=== PATIENT | male | born 1990 | race Hispanic/Latino ===

== ENCOUNTER 2024-11-27 12:23 | Emergency (ER) | payer SELFPAY ==
--- NOTE | ~2024-11-27 | CT_ITS ---
CT scan of the Neck Technique: 2.5 mm axial scans were obtained through the neck after intravenous administration of 75 c c Omnipaque 350. Coronal and sagittal reconstructions of the neck were obtained. Dose reduction techn ique was used on this scan by utilizing automated exposure control and iterative reconstruction techn ique. The dose-length product (DLP) was 454.12 mGy-cm. Clinical History: Spider bite, left-sided neck swelling Findings: There is no evidence of any significant cervical lymphadenopathy. Several small, nonenlarged jugulo- digastric and posterior cervical lymph nodes are noted bilaterally. Parapharyngeal spaces appear norm al bilaterally. The parotid and submandibular glands appear normal. There is diffuse subcutaneous soft tissue edema in the neck, probably mildly worse in the left side o f the neck as compared to right. There is enlargement and edematous change of the left sternocleidoma stoid muscle as compared to the right side, especially at its midportion (for example axial image 40) . No focal fluid collection evident. The pharyngeal mucosal spaces appear normal. No soft tissue masses are seen in the neck. The thyroid gland appears normal. Images of the lung apices reveal no abnormalities. Impression: Extensively enlarged and edematous left sternocleidomastoid muscle as compared to the right side, adele picious for myositis. Mild diffuse subcutaneous soft tissue edema, which could reflect cellulitis. No distinct abscess or mass lesion evident. Reviewed, dictated and finalized at [facility]. Impression: Extensively enlarged and edematous left sternocleidomastoid muscle as compared to the right side, suspicious for myositis. Mild diffuse subcutaneous soft tissue edema, which could reflect cellulitis. No distinct abscess or mass lesion evident.
[2024-11-27 12:25] VITALS: BP 174/105; PULSE 134; RESP 18; TEMP 36.3; O2SAT 99
--- NOTE | 2024-11-27 12:35 | PC.NURSE ---
labs and CT soft tissue of neck with contrast ordered per VO Dr. Jasmine
--- NOTE | 2024-11-27 12:48 | ED_ITS ---
HPI - Skin/Abscess/Foreign Bdy General Chief complaint: Skin/Abscess/Foreign Body Stated complaint: spider bite Time Seen by Provider: 11/27/24 12:38 History of Present Illness HPI narrative: Pt says he felt spider bite him in left neck a couple of days ago, Pt says it was edouard. Pt says his left neck has become swollen and red and very painful. Related Data Allergies Allergy/AdvReac Type Severity Reaction Status Date / Time No Known Allergies Allergy Verified 11/27/24 12:29 Review of Systems 2 Review of Systems: All systems reviewed & are unremarkable except as noted in HPI and below Exam 2 Const: General: healthy appearing and no acute distress Nutritional Appearance: well nourished Orientation/consciousness: patient oriented x3 Limitations: no limitations Neck: Neck: lymphadenopathy Other: swollen erythematous and tender left neck Resp: Effort & Inspection: normal respiratory effort Auscultation: clear to auscultation bilaterally Cardio: Rate: tachycardic Rhythm: regular rhythm GI: GI Palp: Yes Soft to palpation and No Tenderness to palpation present (GI) Auscultation: normal bowel sounds Back/Spine/Pelvis: Back: no CVA tenderness Skin: Other: see neck exam Neuro: General: patient oriented x3, moves all extremities, no meningeal signs and no focal motor deficits Speech: normal speech Extrem: General: normal to inspection and no clubbing, cyanosis or edema Psych: Mental Status: mental status grossly normal Affect: normal affect Attitude: cooperative Course Vital Signs Vital signs: Vital Signs Temperature 97.4 F L 11/27/24 12:25 Pulse Rate 134 H 11/27/24 12:25 Respiratory Rate 18 11/27/24 12:25 Blood Pressure 174/105 H 11/27/24 12:25 Pulse Oximetry 99 11/27/24 12:25 Oxygen Delivery Room Air 11/27/24 12:25 Temperature 97.4 F L 11/27/24 12:25 Pulse Rate 99 11/27/24 14:15 Respiratory Rate 14 11/27/24 14:15 Blood Pressure 134/89 11/27/24 14:15 Pulse Oximetry 100 11/27/24 14:15 Oxygen Delivery Room Air 11/27/24 12:25 MDM - Skin/Abscess/Foreign Bdy MDM Narrative Medical decision making narrative: Pt says he was bitten by edouard spider a couple of days ago and has redness and swelling to left neck. cellulitis at minimum will need labs and cultures to rule out sepsis and CT to rule out abscess. pt has cellulitis and possible myositis but no abscess. will give clindamycin here and home on clinda. Lab Data 11/27/24 12:53 11/27/24 12:53 Labs: Lab Results 11/27/24 Range/Units 12:53 WBC 13.6 H (4.5-10.0) K/mm3 RBC 5.51 (4.6-6.20) M/mm3 Hgb 16.6 (14.0-18.0) g/dL Hct 50.1 (42.0-52.0) % MCV 90.9 (80-100) fl MCH 30.1 (26-34) pg MCHC 33.1 (32-36) g/dl RDW 12.8 (11.5-14.5) % Plt Count 221 (150-375) k/mm3 MPV 10.1 (7.4-10.4) fl Immature Gran % (Auto) 0.4 (0-0.5) % Neut % (Auto) 86.4 H (45.5-73.1) % Lymph % (Auto) 8.5 L (18.3-44.2) % Dubois % (Auto) 2.7 (2.6-8.5) % Eos % (Auto) 1.9 (0-4.4) % Baso % (Auto) 0.1 L (0.2-1.2) % Lymph # (Auto) 1.16 (0.9-3.2) K/mm3 Dubois # (Auto) 0.4 (0.1-0.6) K/mm3 Eos # (Auto) 0.3 (0-0.3) K/mm3 Baso # (Auto) 0.0 (0.0-0.1) K/mm3 Abs Immat Gran (auto) 0.05 H (0.00-0.031) K/mm3 Absolute Neuts (auto) 11.7 H (1.3-6.7) K/mm3 Absolute Nucleated RBC 0.000 (0.0-0.012) K/mm3 Nucleated RBC % 0.0 (0.0-0.2) % Sodium 138 (137-145) mmol/L Potassium 3.8 (3.4-5.0) mmol/L Chloride 100 (98-107) mmol/L Carbon Dioxide 28 (22-30) mmol/L Anion Gap 10 (4-12) mmol/L BUN 13 (9-20) mg/dL Creatinine 0.95 (0.7-1.3) mg/dL Estim Creat Clear Calc 79 ml/min Estimated GFR > 60 (59 - ) Glucose 167 H (65-110) mg/dL Calcium 9.0 (8.4-10.2) mg/dL Total Bilirubin 0.9 (0.2-1.3) mg/dL AST 39 (17-59) U/L ALT 47 (6-50) U/L Alkaline Phosphatase 81 (38-126) U/L Total Protein 8.0 (6.3-8.2) g/dL Albumin 4.6 (3.5-5.1) g/dL Discharge Plan Discharge Clinical Impression: Cellulitis Patient Disposition: Home Condition: Stable Instructions: Antibiotic Form, Cellulitis (ED) Patient Language: [place] Prescriptions: New clindamycin HCl [Cleocin HCl] 300 mg capsule 300 mg PO Q6H Qty: 40 0RF Follow-up/Referrals: PHYSICIAN NOT ON STAFF,NONSTAFF [Non-Staff] - Trevor Jaarmillo MD [Physician] -
[2024-11-27 13:06] LABS: Basophils Percent Auto 0.1 % (0.2-1.2); Eosinophils Absolute Auto 0.3 K/mm3 (0-0.3); Eosinophils Percent Auto 1.9 % (0-4.4); Hematocrit 50.1 % (42.0-52.0); Hemoglobin 16.6 g/dL (14.0-18.0); Immature Granulocyte Absolute 0.05 K/mm3 (0.00-0.031); Immature Granulocyte Percent A 0.4 % (0-0.5); Lymphocytes Absolute Auto 1.16 K/mm3 (0.9-3.2); Lymphocytes Percent Auto 8.5 % (18.3-44.2); Mean Corpuscular HGB Conc 33.1 g/dl (32-36); Mean Corpuscular Hemoglobin 30.1 pg (26-34); Mean Corpuscular Volume 90.9 fl (80-100); Mean Platelet Volume 10.1 fl (7.4-10.4); Monocytes Absolute Auto 0.4 K/mm3 (0.1-0.6); Monocytes Percent Auto 2.7 % (2.6-8.5); Neutrophils Absolute Auto 11.7 K/mm3 (1.3-6.7); Neutrophils Percent Auto 86.4 % (45.5-73.1); Platelet Count Result 221 k/mm3 (150-375); Red Blood Count 5.51 M/mm3 (4.6-6.20); Red Cell Distribution Width 12.8 % (11.5-14.5); White Blood Count 13.6 K/mm3 (4.5-10.0)
[2024-11-27 13:18] LABS: Alanine Aminotransferase 47 U/L (6-50); Albumin Level 4.6 g/dL (3.5-5.1); Alkaline Phosphatase 81 U/L (38-126); Anion Gap 10 mmol/L (4-12); Aspartate Amino Transferase 39 U/L (17-59); Bilirubin,Total 0.9 mg/dL (0.2-1.3); Blood Urea Nitrogen 13 mg/dL (9-20); Carbon Dioxide 28 mmol/L (22-30); Chloride 100 mmol/L (98-107); Estimated CRCL calculation 79 ml/min; Estimated Glomerular Filt Rate > 60; Glucose 167 mg/dL (65-110); Potassium 3.8 mmol/L (3.4-5.0); Sodium 138 mmol/L (137-145)
[2024-11-27] MEDS: CLINDAMYCIN 600 MG/D5W 50 ML 600 MG/50 ML PIGGYBACK 100 MG IVPB (14:13)
[2024-11-27 14:15] VITALS: BP 134/89; PULSE 99; RESP 14; O2SAT 100
== END 2024-11-27 15:25 | disposition home or self-care (01) ==
PROVIDERS: Emergency Provider Emergency Medicine
DX: L03.221 Cellulitis of neck (principal)
CPT/HCPCS: 36415; 70491; 80053; 85025; 87040; 96365; 99284; Q9967